=== PATIENT | female | born 1970 ===

== ENCOUNTER 2018-09-02 07:11 | Emergency (ER) | payer SELFPAY ==
[2018-09-02 07:21] VITALS: BMI 31.9
[2018-09-02 07:23] VITALS: O2SAT 98
--- NOTE | 2018-09-02 08:28 | ED PDOC ---
Upper Extremity Pain/Injury Time Seen by Provider: 09/02/18 07:39 Chief Complaint (Nursing): Upper Extremity Problem/Injury Chief Complaint (Provider): Bilateral arm numbness History Per: Patient History/Exam Limitations: no limitations Onset/Duration Of Symptoms: Days (x3) Current Symptoms Are (Timing): Still Present Additional Complaint(s): 47 year old female presents to the ED complaining of bilateral arm numbness and tingling for 3 days. Patient reports 3/10 pain to the right arm and 8/10 pain of the left arm. Denies trauma to spine or any injuries. Denies SOB, CP, vomiting, diarrhea, or nausea. She states having some pain in the neck and indicates that she is pre-diabetic. 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 Past Medical History Reviewed: Historical Data, Nursing Documentation, Vital Signs Vital Signs: Last Vital Signs Temp 97.6 F 09/02/18 07:22 Pulse 62 09/02/18 07:22 Resp 18 09/02/18 07:22 BP 147/89 09/02/18 07:22 Pulse Ox 98 09/02/18 07:22 - Medical History PMH: Diabetes (Pre-diabetic) - Surgical History Surgical History: (x2) - Family History Family History: States: Diabetes, Hypertension - Social History Current smoker - smoking cessation education provided: No Alcohol: None Drugs: Denies - Home Medications Home Medications: Ambulatory Orders Medication Instructions Recorded Ciprofloxacin/Ciprofloxa HCl 500 mg PO BID #14 tab 12/29/15 [Ciprofloxacin] Ibuprofen [Motrin Tab] 800 mg PO Q8 PRN #20 tab 12/29/15 Nitrofurantoin Macrocrystals 100 mg PO BID #14 cap 11/25/16 [Macrobid] Naproxen [Naprosyn] 500 mg PO BID PRN #20 tablet 09/02/18 - Allergies Allergies/Adverse Reactions: Allergies Allergy/AdvReac Type Severity Reaction Status Date / Time No Known Allergies Allergy Verified 09/02/18 07:32 Review of Systems ROS Statement: Except As Marked, All Systems Reviewed And Found Negative Cardiovascular: Negative for: Chest Pain Respiratory: Negative for: Shortness of Breath Gastrointestinal: Negative for: Nausea, Vomiting, Diarrhea Musculoskeletal: Positive for: Neck Pain (mild) Neurological: Positive for: Numbness (bilateral arms). Negative for: Other (trauma to spine) Physical Exam - Reviewed Nursing Documentation Reviewed: Yes Vital Signs Reviewed: Yes - Physical Exam Appears: Positive for: Non-toxic, No Acute Distress Head Exam: Positive for: ATRAUMATIC, NORMOCEPHALIC Skin: Positive for: Normal Color, Warm, Dry Eye Exam: Positive for: Normal appearance Neck: Positive for: Normal, Painless ROM Cardiovascular/Chest: Positive for: Regular Rate, Rhythm. Negative for: Murmur Respiratory: Positive for: Normal Breath Sounds. Negative for: Wheezing, Re spiratory Distress Gastrointestinal/Abdominal: Positive for: Normal Exam Back: Positive for: Other (tenderness in midline; no paraspinal tenderness). Negative for: L CVA Tenderness, R CVA Tenderness Extremity: Positive for: Normal ROM Neurologic/Psych: Positive for: Alert, Oriented. Negative for: Motor/Sensory Deficits - Laboratory Results Result Diagrams: 09/02/18 08:10 09/02/18 08:10 - ECG O2 Sat by Pulse Oximetry: 98 (RA) Pulse Ox Interpretation: Normal - Radiology X-Ray: Read By Radiologist X-Ray Interpretation: No Acute Disease Medical Decision Making Medical Decision Making: Initial Impression: Bilateral upper extremity numbness and tingling with some pain on both sides Initial Plan: --CT cervical spine --ECG --BMP --Troponin --ED urine dipstick --ED urine --CBC --Erythrocyte sedimentation stat Cardiac workup ordered. Scribe Attestation: Documented by Sree Quiroz acting as a scribe for Ju Diaz MD. Provider Scribe Attestation: All medical record entries made by the Scribe were at my direction and personally dictated by me. I have reviewed the chart and agree that the record accurately reflects my personal performance of the history, physical exam, medical decision making, and the department course for this patient. I have also personally directed, reviewed, and agree with the discharge instructions and disposition. Disposition - Clinical Impression Clinical Impression: Cervical radiculopathy, Ulnar tunnel syndrome of right wrist - Patient ED Disposition Is Patient to be Admitted: No Doctor Will See Patient In The: Office Counseled Patient/Family Regarding: Diagnosis, Need For Followup, Rx Given - Disposition Referrals: [facility] [Outside] [facility] [Outside] Disposition: Routine/Home Disposition Time: 10:15 Condition: STABLE Prescriptions: Naproxen [Naprosyn] 500 mg PO BID PRN #20 tablet PRN Reason: Pain, Moderate (4-7) Instructions: Radiculopathy Forms: [employer] (Telugu) Print Language: PORTUGUESE - POA Present On Arrival: None
[2018-09-02 08:31] LABS: BASO % 0.6 % (0.0-2.0); EOS # 0.1 K/uL (0.0-0.7); EOS % 1.9 % (0.0-4.0); HEMOGLOBIN 12.9 g/dL (12.0-16.0); LYMPH # 1.6 K/uL (1.0-4.3); LYMPH % 32.3 % (20.0-40.0); MEAN CELL VOLUME 88.1 fl (81.0-99.0); MEAN CORPUSCULAR HGB CONC 32.9 g/dL (33.0-37.0); MEAN PLATELET VOLUME 8.3 fl (7.2-11.7); MONO # 0.3 K/uL (0.0-0.8); MONO % 5.1 % (0.0-10.0); NEUT % 60.1 % (50.0-75.0); NRBC % 0.1 % (0.0-0.0); RBC 4.46 Mil/uL (3.80-5.20); RED CELL DISTRIBUTION WIDTH 13.1 % (11.5-14.5)
[2018-09-02 08:57] LABS: BLOOD UREA NITROGEN 13 mg/dl (7-17); GFR NON-AFRICAN AMERICAN > 60
--- NOTE | 2018-09-02 10:13 | CT ---
Date of service: 09/02/2018 PROCEDURE: CT Cervical Spine without contrast HISTORY: tingling/numbness both arms with pain L>>R COMPARISON: None available. TECHNIQUE: Axial computed tomography images were obtained of the cervical spine without the use of intravenous contrast. Coronal and sagittal reformatted images were created and reviewed. Radiation dose: Total exam DLP = 315.93 mGy-cm. This CT exam was performed using one or more of the following dose reduction techniques: Automated exposure control, adjustment of the mA and/or kV according to patient size, and/or use of iterative reconstruction technique. FINDINGS: VERTEBRAE: No fracture. Normal alignment. No destructive bony lesion. DISCS/SPINAL CANAL/NEURAL FORAMINA: No significant central canal or neural foraminal stenosis. Minor endplate changes are identified in the mid to lower cervical spine region without significant endplate spurring. Minor disc bulging is not excluded at C5-6 and C6-7. No jumped facets are seen. C1-C2 articulation is within normal limits. PARASPINAL SOFT TISSUES: No prevertebral soft tissue swelling noted. A few small scattered lymph nodes are seen within the neck. Thyroid gland is unremarkable. OTHER FINDINGS: Lung apices are within normal limits. Visualized mastoid air cells are unremarkable. Upper ribs are intact. IMPRESSION: No CT scan evidence of fracture malalignment. Minimal degenerative changes. Nonemergent MRI could be obtained to exclude other etiologies including demyelinating disease.
[2018-09-02 10:44] VITALS: BP 121/80; PULSE 57; RESP 16; TEMP 98.2
--- NOTE | 2018-09-03 10:18 | CARD ---
APPROVED REPORT Date of service: 09/02/2018 EKG Measurement Heart [id number] <Conclusion> Normal sinus rhythm Normal ECG
== END 2018-09-02 10:44 | disposition home or self-care (01) ==
LOC: H.ER 07:11
DX: M54.12 Radiculopathy, cervical region (principal); G56.22 Lesion of ulnar nerve, left upper limb; R73.03 Prediabetes